=== PATIENT | male | born 1980 ===

== ENCOUNTER → 2017-08-14 | Outpatient (CLI) | payer OTHER ==
[~2017-08-14] MED LIST: CATAFLAN PO; FLEXERIL PO; NABUMETONE500 MG PO; PERCOCET 5/3251 TAB PO; ZANTAC150 MG; ZYRTEC10 MG PO
== END | disposition home or self-care (01) ==
LOC: RAD 11:10
DX: M25.571 Pain in right ankle and joints of right foot (principal)